=== PATIENT | male | born 1990 | race Two or more races ===

== ENCOUNTER 2021-02-10 23:20 | Emergency (ER) | payer MEDICAID, OTHER ==
[~2021-02-10] VITALS: Ht 177.8 cm; Wt 99.8 kg
[2021-02-11 00:18] LABS: Alcohol, Urine < 3.0 mg/dL (0-10); Amphetamine Screen, Urine NEGATIVE (NEGATIVE); Barbiturate Scree,Urine NEGATIVE (NEGATIVE); Benzodiazephine Screen, Urine POSITIVE (NEGATIVE); Cannabinoid Screen, Urine NEGATIVE (NEGATIVE); Cocaine Screen, Urine POSITIVE (NEGATIVE); Opiate Scree,Urine NEGATIVE (NEGATIVE); Phencyclidine Screen, Urine NEGATIVE (NEGATIVE)
[2021-02-11 01:15] VITALS: BP 94/62
== END 2021-02-11 01:20 | disposition home or self-care (01) ==
LOC: ER 23:20
DX: F19.10 Other psychoactive substance abuse, uncomplicated (principal); R41.0 Disorientation, unspecified
CPT/HCPCS: 80307